=== PATIENT | male | born 1960 | race Two or more races ===

== ENCOUNTER 2017-07-03 14:23 | Inpatient (IN) | payer OTHER ==
[~2017-07-03] VITALS: Ht 162.6 cm; Wt 64.2 kg
[2017-07-03 15:16] LABS: Basophils # (auto) 0 uL; Basophils % (auto) 0.8 % (0.0-2.0); Eosinophils # (auto) 0.3 uL; Eosinophils % (auto) 3.9 % (0.0-7.0); Hematocrit 37.2 % (41.0-53.0); Hemoglobin 12.9 g/dL (13.5-17.5); Lymphocytes # (auto) 2.8 uL; Lymphocytes % (auto) 43.3 % (10.0-50.0); Mean Corpuscular Hemoglobin 36.9 pg (28.0-32.0); Mean Corpuscular Hgb Conc. 34.7 g/dL (32.0-36.0); Mean Corpuscular Volume 106.5 fL (80.0-100.0); Mean Platelet Volume 7.6 fL (6.9-10.8); Monocytes # (auto) 0.6 uL; Monocytes % (auto) 9.5 % (0.0-12.0); Neutrophils # (auto) 2.8 uL; Neutrophils % (auto) 42.5 % (37.0-80.0); Nucleated Red Blood Cells % 0.2 %; Platelet Count (auto) 150 10^3/uL (140-450); Red Cell Distribution Width 14.1 % (11.8-14.3); White Blood Cell 6.6 10^3/uL (4.4-10.8)
[2017-07-03 15:59] LABS: Urine Bilirubin Negative (Negative); Urine Blood Negative /uL (Negative); Urine Color Yellow (Yellow); Urine Glucose Normal (Normal); Urine Ketone TRACE (Negative); Urine Mucus FEW (None Seen); Urine Nitrite Negative (Negative); Urine RBC 1 /hpf (0 - 3); Urine Squamous Epithelial Cell FEW /hpf (<5); Urine pH 5.5 (5.0-8.0)
[2017-07-03 16:05] LABS: Albumin 2.4 g/dL (3.4-5.0); BUN/Creatinine Ratio 20.3; Bilirubin, Total 1.3 mg/dL (0.2-1.0); Calcium 7.6 mg/dL (8.5-10.1); Magnesium 2.1 mg/dL (1.6-2.6); Potassium 3.6 mmol/L (3.5-5.1); Total Protein 6.9 g/dL (6.4-8.2)
[2017-07-03] MEDS ORDERED: HYDROcodone-ACET 5/325MG TAB PO PRN (17:45)
[2017-07-03] MEDS ORDERED: LACTULOSE 20Gm/30ML SOLN PO PRN (17:45)
[2017-07-03] MEDS ORDERED: DOCUSATE SOD 100 MG CAP PO PRN (17:45)
[2017-07-03] MEDS ORDERED: MORPHINE SULF INJ 2 MG/ML SYRINGE 1ML IV PRN (17:45)
[2017-07-03] MEDS ORDERED: TEMAZEPAM 15 MG CAP PO PRN (17:45)
[2017-07-03] MEDS ORDERED: ONDANSETRON HCL 4 MG/2 ML VIAL IV PRN (17:45)
[2017-07-03] MEDS ORDERED: NITROGLYCERIN 0.4 MG SL TAB SL PRN (17:45)
[2017-07-03] MEDS ORDERED: ACETAMINOPHEN 325 MG TAB PO PRN (17:45)
[2017-07-03] MEDS ORDERED: THIAMINE INJ 100 MG, MULTIPLE VITAMIN 10 ML, FOLIC ACID 1 MG, MAGNESIUM SULF SDV 50% 8 ... IV SCH ×5 (18:30)
[2017-07-03 18:42] LABS: INR 1.19 (0.9-1.15)
[2017-07-03] MEDS: SPIRONOLACTONE 25 MG TAB PO SCH (18:43)
[2017-07-03] MEDS: FUROSEMIDE 20 MG/2 ML VIAL IV SCH (18:43)
[2017-07-03 19:35] LABS: Temperature: 22.4 C (20.0-25.0)
[2017-07-03] MEDS: BOOST PLUS 8 ounce PO SCH ×2 (19:52→22:00)
[2017-07-03 20:22] LABS: B-Type Natriuretic Peptide 21.44 pg/mL (0-100); Temperature: 22.4 C (20.0-25.0)
[2017-07-03] MEDS: MORPHINE SULF INJ 2 MG/ML SYRINGE 1ML IV PRN (21:02)
[2017-07-03] MEDS: SODIUM CHLOR 0.9% PF (SALINE LOCK) 10ML VIAL IV SCH (21:03)
[2017-07-03 22:00] VITALS: BP 133/80
[2017-07-03] MEDS ORDERED: PNEUMOCOCCAL VACC POLYS 25 MCG/0.5 ML VIAL IM ONE (22:30)
[2017-07-03] MEDS: FAMOTIDINE 20 MG TAB PO SCH (23:07)
[2017-07-04] MEDS: MORPHINE SULF INJ 2 MG/ML SYRINGE 1ML IV PRN ×2 (01:13→05:08)
[2017-07-04] MEDS: SODIUM CHLOR 0.9% PF (SALINE LOCK) 10ML VIAL IV SCH ×3 (01:13→22:26)
[2017-07-04 05:00] VITALS: BP 122/75
[2017-07-04] MEDS: SPIRONOLACTONE 25 MG TAB PO SCH (05:08)
[2017-07-04] MEDS: FUROSEMIDE 20 MG/2 ML VIAL IV SCH (05:08)
[2017-07-04] MEDS: BOOST PLUS 8 ounce PO SCH ×4 (06:00→22:26)
[2017-07-04 06:32] LABS: Albumin 2.1 g/dL (3.4-5.0); Calcium 7.6 mg/dL (8.5-10.1)
[2017-07-04 06:45] LABS: BUN/Creatinine Ratio 24.2; Bilirubin, Total 1.1 mg/dL (0.2-1.0)
[2017-07-04 08:00] VITALS: BP 124/75
[2017-07-04 08:37] VITALS: BP 124/75
[2017-07-04] MEDS ORDERED: THIAMINE INJ 100 MG, MULTIPLE VITAMIN 10 ML, FOLIC ACID 1 MG, MAGNESIUM SULF SDV 50% 8 ... IV ONE ×5 (09:00)
[2017-07-04] MEDS: MULTIPLE VITAMIN TAB PO SCH (10:57)
[2017-07-04] MEDS: FAMOTIDINE 20 MG TAB PO SCH ×2 (10:57→22:26)
[2017-07-04 12:15] VITALS: BP 117/68
[2017-07-04 16:50] VITALS: BP 119/74
[2017-07-04 20:00] VITALS: BP 118/64
[2017-07-04 21:20] LABS: Body Fluid Polymorphonuclear 24 %
[2017-07-05 05:40] VITALS: BP 92/48
[2017-07-05] MEDS: SODIUM CHLOR 0.9% PF (SALINE LOCK) 10ML VIAL IV SCH ×2 (06:06→14:00)
[2017-07-05] MEDS: BOOST PLUS 8 ounce PO SCH ×3 (06:06→18:00)
[2017-07-05 06:52] LABS: Basophils # (auto) 0 uL; Eosinophils # (auto) 0.2 uL; Lymphocytes # (auto) 2.1 uL; Lymphocytes % (auto) 37.6 % (10.0-50.0); Monocytes # (auto) 0.5 uL; Monocytes % (auto) 8.7 % (0.0-12.0); Neutrophils % (auto) 49.3 % (37.0-80.0); Platelet Count (auto) 106 10^3/uL (140-450); Red Cell Distribution Width 14.1 % (11.8-14.3)
[2017-07-05 06:54] LABS: Basophils % (auto) 0.7 % (0.0-2.0); Eosinophils % (auto) 3.7 % (0.0-7.0); Hematocrit 32.8 % (41.0-53.0); Hemoglobin 11.5 g/dL (13.5-17.5); Mean Corpuscular Hemoglobin 37.2 pg (28.0-32.0); Mean Corpuscular Volume 106.2 fL (80.0-100.0); Mean Platelet Volume 8.2 fL (6.9-10.8); Neutrophils # (auto) 2.7 uL; Nucleated Red Blood Cells % 0.3 %; White Blood Cell 5.5 10^3/uL (4.4-10.8)
[2017-07-05 07:06] LABS: Albumin 1.8 g/dL (3.4-5.0); BUN/Creatinine Ratio 27.3; Potassium 4.1 mmol/L (3.5-5.1)
[2017-07-05 07:16] LABS: Bilirubin, Total 0.9 mg/dL (0.2-1.0); Total Protein 5.5 g/dL (6.4-8.2)
[2017-07-05 08:11] VITALS: BP 100/67
[2017-07-05] MEDS ORDERED: FUROSEMIDE 20 MG TAB PO SCH (10:00)
[2017-07-05] MEDS ORDERED: SPIRONOLACTONE 25 MG TAB PO SCH (10:00)
[2017-07-05] MEDS: FAMOTIDINE 20 MG TAB PO SCH (10:17)
[2017-07-05] MEDS: MULTIPLE VITAMIN TAB PO SCH (10:17)
[2017-07-05 13:07] LABS: Albumin, Body Fluid 0.8 g/dL (.)
[2017-07-05 17:14] VITALS: BP 96/54
[2017-07-06 09:50] LABS: Hepatitis B Surface Antibody Negative
== END 2017-07-05 19:40 | disposition home or self-care (01) | DRG 432 ==
LOC: ER 14:23 → TELE 14:24 → TELE-WESTW 20:20
PROVIDERS: ADMIT Internal Medicine; ATTEND Internal Medicine
PROC: 0W9G3ZZ Drainage of Peritoneal Cavity, Percutaneous Approach (ICD-10-PCS; principal; 2017-07-04)
DX: K70.31 Alcoholic cirrhosis of liver with ascites (principal); E43 Unspecified severe protein-calorie malnutrition; K76.6 Portal hypertension; E83.51 Hypocalcemia; R16.1 Splenomegaly, not elsewhere classified; I07.1 Rheumatic tricuspid insufficiency; J98.11 Atelectasis; F10.188 Alcohol abuse with other alcohol-induced disorder; K59.00 Constipation, unspecified; I11.9 Hypertensive heart disease without heart failure; D63.8 Anemia in other chronic diseases classified elsewhere; R74.8 Abnormal levels of other serum enzymes; Z68.23 Body mass index [BMI] 23.0-23.9, adult; Z23 Encounter for immunization
CPT/HCPCS: 10030; 36415; 71010; 74176; 76700; 76942; 78452; 80053; 80307; 81001; 82140; 82607; 82746; 83690; 83735; 83880; 84443; 84484; 85025; 85610; 86704; 86706; 86708; 86803; 87340; 89051; 93005; 93017; 93306; 96374

== ENCOUNTER → 2017-07-11 | Outpatient (CLI) | payer OTHER ==
[2017-07-11 12:49] LABS: Magnesium 2.3 mg/dL (1.6-2.6); Potassium 4.2 mmol/L (3.5-5.1)
[2017-07-14 13:07] LABS: HCV Quantitiation 362420 IU/mL (.)
== END | disposition home or self-care (01) ==
LOC: LAB 11:05
PROVIDERS: ATTEND Internal Medicine
DX: K74.60 Unspecified cirrhosis of liver (principal); Z79.899 Other long term (current) drug therapy
CPT/HCPCS: 36415; 80061; 82105; 83735; 84132; 84153; 87522

== ENCOUNTER 2018-02-12 21:11 | Emergency (ER) | payer OTHER ==
[~2018-02-12] VITALS: Ht 167.6 cm; Wt 65.8 kg
[2018-02-12 21:29] VITALS: BP 140/77
[2018-02-12 22:05] LABS: Hematocrit 38.8 % (41.0-53.0); Hemoglobin 13.3 g/dL (13.5-17.5); Mean Corpuscular Hgb Conc. 34.3 g/dL (32.0-36.0); Red Blood Cells 3.62 10^6/uL (4.5-5.90); White Blood Cell 6.2 10^3/uL (4.4-10.8)
[2018-02-12 22:07] LABS: Basophils # (auto) 0 uL; Basophils % (auto) 0.6 % (0.0-2.0); Eosinophils # (auto) 0.1 uL; Eosinophils % (auto) 2.4 % (0.0-7.0); Lymphocytes # (auto) 1.9 uL; Lymphocytes % (auto) 30.6 % (10.0-50.0); Mean Corpuscular Hemoglobin 36.8 pg (28.0-32.0); Mean Corpuscular Volume 107.3 fL (80.0-100.0); Monocytes # (auto) 0.5 uL; Monocytes % (auto) 8.1 % (0.0-12.0); Neutrophils # (auto) 3.6 uL; Neutrophils % (auto) 58.3 % (37.0-80.0); Nucleated Red Blood Cells % 0.2 %; Platelet Count (auto) 154 10^3/uL (140-450); Red Cell Distribution Width 14.6 % (11.8-14.3)
[2018-02-12 22:26] LABS: Alanine Aminotransferase 108 U/L (16-61); Albumin 2.3 g/dL (3.4-5.0); Anion Gap 6 (5-15); Aspartate Aminotransferase 136 U/L (15-37); BUN/Creatinine Ratio 14.4; Blood Urea Nitrogen 13 mg/dL (7-18); Calcium 7.8 mg/dL (8.5-10.1); Carbon Dioxide 27 mmol/L (21-32); Chloride 109 mmol/L (98-107); GFR African American 112 mL/min; GFR Non-African American 93 mL/min; Glucose 86 mg/dL (74-106); Sodium 142 mmol/L (136-145)
[2018-02-12 22:31] LABS: Alkaline Phosphatase 133 U/L (45-117); Bilirubin, Total 1.3 mg/dL (0.2-1.0); INR 1.31 (0.9-1.15); Partial Thromboplastin Time 30.6 sec (23.78-33.04); Prothrombin Time 13.8 sec (9.27-12.13); Total Protein 6.9 g/dL (6.4-8.2)
== END 2018-02-12 23:50 | disposition left against medical advice (07) ==
LOC: ER 21:11
DX: R10.9 Unspecified abdominal pain (principal); Z53.21 Procedure and treatment not carried out due to patient leaving prior to being seen by health care provider
CPT/HCPCS: 36415; 74176; 80053; 84484; 85025; 85610; 85730; 93005